=== PATIENT | female | born 1935 | race Caucasian/White ===

== ENCOUNTER 2017-06-21 22:59 | Emergency (ER) | payer MEDICARE, OTHER ==
[~2017-06-21] VITALS: Ht 154.9 cm; Wt 50.8 kg
[2017-06-22 01:00] VITALS: BP 138/65
[2017-06-22] MEDS ORDERED: MORPHINE SULFATE 4 MG/ML SYR/VIAL IV ONE (01:15)
[2017-06-22] MEDS ORDERED: ONDANSETRON HCL 4 MG/2 ML VIAL IV ONE (01:15)
== END 2017-06-22 05:05 | disposition home or self-care (01) ==
LOC: ER 23:00
DX: S42.211A Unspecified displaced fracture of surgical neck of right humerus, initial encounter for closed fracture (principal); W19.XXXA Unspecified fall, initial encounter; Z91.81 History of falling; Y93.89 Activity, other specified; Y99.8 Other external cause status; Y92.89 Other specified places as the place of occurrence of the external cause
CPT/HCPCS: 29105; 73030; 73060; 96374; 96375; 99284; J2270; J2405